=== PATIENT | female | born 1985 | race Caucasian/White ===

== ENCOUNTER 2017-06-12 12:21 | Emergency (ER) | payer OTHER ==
[2017-06-12] MEDS: ONDANSETRON 4 MG INJ IV ×2 (12:57→14:09)
[2017-06-12] MEDS: KETOROLAC 30 MG INJ IV (12:58)
[2017-06-12] MEDS: ACETAMINOPHEN 325 MG TAB PO (12:58)
[2017-06-12] MEDS: SOD CHLORIDE 0.9% 1,000 ML IV (12:58)
[2017-06-12 13:19] LABS: ADD MAN DIFF? NO
[2017-06-12 13:22] LABS: WHITE BLOOD COUNT 12.1 10^3/ul (4.8-10.8)
[2017-06-12 13:22] LABS: BASOPHILS % 0.2 % (0.0-2.0); HEMATOCRIT 41.5 % (37.0-47.0); HEMOGLOBIN 14.3 g/dl (12.0-16.0); LYMPHOCYTES # 1.3 10^3/ul (0.8-2.9); LYMPHOCYTES % 10.7 % (15.0-51.0); MEAN CORPUSCULAR HEMOGLOBIN 29.1 pg (29.0-33.0); MEAN CORPUSCULAR HGB CONC 34.5 g/dl (32.0-37.0); MEAN CORPUSCULAR VOLUME 84.5 fl (82.0-101.0); MEAN PLATELET VOLUME 10.3 fl (7.4-10.4); MONOCYTE # 0.8 10^3/ul (0.3-0.9); MONOCYTES % 6.8 % (0.0-11.0); NEUTROPHIL # 9.9 10^3/ul (1.6-7.5); NEUTROPHILS % 81.7 % (39.0-77.0); PLATELET COUNT 364 10^3/UL (140-415); RED BLOOD COUNT 4.91 10^6/ul (4.20-5.40); RED CELL DISTRIBUTION WIDTH 13.7 % (11.5-14.5)
[2017-06-12 13:42] LABS: ALANINE AMINOTRANSFERASE 35 IU/L (13-69); ALBUMIN 5.3 g/dl (3.3-4.9); ALBUMIN/GLOBULIN RATIO 1.32; ALKALINE PHOSPHATASE 71 IU/L (42-121); ANION GAP 24 (8-16); ASPARTATE AMINO TRANSFERASE 34 IU/L (15-46); BILIRUBIN,INDIRECT 0.4 mg/dl (0-1.1); BILIRUBIN,TOTAL 0.4 mg/dl (0.2-1.3); BLOOD UREA NITROGEN 10 mg/dl (7-20); CALCIUM 10.6 mg/dl (8.4-10.2); CARBON DIOXIDE 20 mmol/L (21-31); CHLORIDE 103 mmol/L (97-110); CREATININE 0.68 mg/dl (0.44-1.00); GLUCOSE 122 mg/dl (70-220); LIPASE 154 U/L (23-300); POTASSIUM 3.2 mmol/L (3.5-5.1); SODIUM 144 mmol/L (135-144); TOTAL PROTEIN 9.3 g/dl (6.1-8.1)
[2017-06-12 14:12] LABS: ADD UMIC YES; UR AMORPHOUS CRYSTAL FEW /HPF (NONE SEEN); UR ASCORBIC ACID NEGATIVE (NEGATIVE); UR BACTERIA FEW /HPF (NONE SEEN); UR BILIRUBIN (Dip) NEGATIVE (NEGATIVE); UR BLOOD (Dip) 1+ mg/dL (NEGATIVE); UR CLARITY CLOUDY (CLEAR); UR COLOR YELLOW (YELLOW); UR GLUCOSE (Dip) NEGATIVE (NEGATIVE); UR KETONES (Dip) 1+ mg/dL (NEGATIVE); UR LEUKOCYTE ESTERASE (Dip) NEGATIVE Leu/ul (NEGATIVE); UR MUCUS MODERATE /HPF (NONE SEEN); UR NITRITE (Dip) NEGATIVE (NEGATIVE); UR RBC 14 /HPF (0-5); UR TOTAL PROTEIN (Dip) 2+ mg/dl (NEGATIVE); UR UROBILINOGEN (Dip) NEGATIVE (NEGATIVE); UR WBC 3 /HPF (0-5)
[2017-06-12] MEDS: POTASSIUM CHLORIDE (SR) 20 MEQ TAB PO (14:23)
[2017-06-12] MEDS: DEXTROSE 5%-0.45% NACL 500 ML BAG IV (14:24)
[2017-06-12] MEDS: morphine 4 MG/ML VIAL IV (14:42)
[2017-06-12] MEDS: DIPHENHYDRAMINE 50 MG INJ IV (15:39)
[2017-06-12] MEDS: METOCLOPRAMIDE 10 MG INJ IV (15:39)
== END 2017-06-12 16:47 | disposition home or self-care (01) ==
LOC: FTE 12:21
DX: R10.30 Lower abdominal pain, unspecified (principal); R11.2 Nausea with vomiting, unspecified
CPT/HCPCS: 36415; 74176; 80053; 81001; 83690; 85025; 87086; 87591; 96374; 96375; 96376; 99285-25

== ENCOUNTER 2017-06-13 11:44 | Emergency (ER) | payer OTHER ==
[2017-06-13 15:51] LABS: ADD MAN DIFF? NO
[2017-06-13] MEDS: ONDANSETRON 4 MG INJ IV (15:51)
[2017-06-13] MEDS: morphine 4 MG/ML VIAL IV (15:51)
[2017-06-13] MEDS: SOD CHLORIDE 0.9% 1,000 ML IV (15:52)
[2017-06-13 15:53] LABS: BASOPHIL # 0.1 10^3/ul (0.0-0.1); BASOPHILS % 0.5 % (0.0-2.0); EOSINOPHILS % 0.1 % (0.0-7.0); HEMATOCRIT 42.8 % (37.0-47.0); HEMOGLOBIN 14.5 g/dl (12.0-16.0); LYMPHOCYTES # 2.2 10^3/ul (0.8-2.9); LYMPHOCYTES % 19.6 % (15.0-51.0); MEAN CORPUSCULAR HEMOGLOBIN 29.6 pg (29.0-33.0); MEAN CORPUSCULAR HGB CONC 33.9 g/dl (32.0-37.0); MEAN CORPUSCULAR VOLUME 87.3 fl (82.0-101.0); MEAN PLATELET VOLUME 9.9 fl (7.4-10.4); MONOCYTE # 0.8 10^3/ul (0.3-0.9); MONOCYTES % 7.2 % (0.0-11.0); NEUTROPHIL # 7.9 10^3/ul (1.6-7.5); NEUTROPHILS % 72.1 % (39.0-77.0); PLATELET COUNT 365 10^3/UL (140-415); RED CELL DISTRIBUTION WIDTH 13.7 % (11.5-14.5)
[2017-06-13 16:04] LABS: ADD UMIC YES; UR ASCORBIC ACID NEGATIVE (NEGATIVE); UR BILIRUBIN (Dip) NEGATIVE (NEGATIVE); UR BLOOD (Dip) 2+ mg/dL (NEGATIVE); UR CLARITY CLOUDY (CLEAR); UR COLOR YELLOW (YELLOW); UR GLUCOSE (Dip) NEGATIVE (NEGATIVE); UR KETONES (Dip) 2+ mg/dL (NEGATIVE); UR LEUKOCYTE ESTERASE (Dip) TRACE Leu/ul (NEGATIVE); UR MUCUS FEW /HPF (NONE SEEN); UR NITRITE (Dip) NEGATIVE (NEGATIVE); UR RBC 14 /HPF (0-5); UR SPECIFIC GRAVITY (Dip) 1.021 (1.003-1.030); UR TOTAL PROTEIN (Dip) 1+ mg/dl (NEGATIVE); UR UROBILINOGEN (Dip) NEGATIVE (NEGATIVE); UR WBC 5 /HPF (0-5)
[2017-06-13 16:11] LABS: ALANINE AMINOTRANSFERASE 44 IU/L (13-69); ALBUMIN 5.2 g/dl (3.3-4.9); ALBUMIN/GLOBULIN RATIO 1.44; ALKALINE PHOSPHATASE 62 IU/L (42-121); ANION GAP 20 (8-16); ASPARTATE AMINO TRANSFERASE 37 IU/L (15-46); BILIRUBIN,INDIRECT 0.6 mg/dl (0-1.1); BILIRUBIN,TOTAL 0.6 mg/dl (0.2-1.3); BLOOD UREA NITROGEN 11 mg/dl (7-20); CALCIUM 10.4 mg/dl (8.4-10.2); CARBON DIOXIDE 25 mmol/L (21-31); CHLORIDE 98 mmol/L (97-110); CREATININE 0.73 mg/dl (0.44-1.00); GLUCOSE 106 mg/dl (70-220); LIPASE 121 U/L (23-300); SODIUM 140 mmol/L (135-144); TOTAL PROTEIN 8.8 g/dl (6.1-8.1)
[2017-06-13 16:25] LABS: POTASSIUM 2.9 mmol/L (3.5-5.1)
[2017-06-13] MEDS: POTASSIUM CHLORIDE (SR) 20 MEQ TAB PO (16:42)
[2017-06-13] MEDS: DIPHENHYDRAMINE 50 MG INJ IV (17:03)
[2017-06-13] MEDS: METOCLOPRAMIDE 10 MG INJ IV (17:03)
[2017-06-13] MEDS: ACETAMINOPHEN 500 MG TAB PO (17:14)
[2017-06-13] MEDS: IODIXANOL LOCM 100 ML BTL (18:39)
[2017-06-13] MEDS: IOHEXOL 300MG/ML 150 ML BTL (18:39)
[2017-06-13] MEDS: SOD CHLORIDE 0.9% 100 ML (18:39)
== END 2017-06-13 18:48 | disposition home or self-care (01) ==
LOC: FTE 11:44
DX: E87.6 Hypokalemia (principal)
CPT/HCPCS: 36415; 80053; 81001; 83690; 85025; 96374; 96375; 99284-25

== ENCOUNTER 2017-10-18 10:34 | Emergency (ER) | payer OTHER ==
[2017-10-18] MEDS: KETOROLAC 60 MG INJ IM (11:12)
[2017-10-18] MEDS: DEXAMETHASONE 10 MG/ML 1 ML INJ PO (11:13)
[2017-10-18] MEDS: DIAZEPAM 5 MG TAB PO (11:13)
== END 2017-10-18 12:33 | disposition home or self-care (01) ==
LOC: FTE 10:34
DX: M54.5 Low back pain (principal)
CPT/HCPCS: 72131; 81025; 96372; 99285-25